=== PATIENT | female | born 1985 ===

== ENCOUNTER → 2019-10-26 | Outpatient (CLI) | payer OTHER ==
[~2019-10-26] MED LIST: MACROBID 100 M100 MG PO; OBSTETRIX DHA1 EACH
== END | disposition home or self-care (01) ==
LOC: PRENATAL 13:27
PROVIDERS: ATTEND Obstetrics & Gynecology Maternal & Fetal Medicine
DX: Z36.89 Encounter for other specified antenatal screening (principal); O36.80X1 Pregnancy with inconclusive fetal viability, fetus 1; Z3A.12 12 weeks gestation of pregnancy

== ENCOUNTER 2019-10-31 22:19 | Emergency (ER) | payer OTHER ==
[~2019-10-31] VITALS: Ht 162.6 cm; Wt 68.0 kg
[2019-10-31] MEDS ORDERED: OBSTETRIX DHA1 EACH (22:34)
[2019-11-01] MEDS ORDERED: MACROBID 100 M100 MG PO (01:53)
== END 2019-11-01 02:15 | disposition home or self-care (01) ==
LOC: ER 22:19
DX: O23.41 Unspecified infection of urinary tract in pregnancy, first trimester (principal); R10.2 Pelvic and perineal pain

== ENCOUNTER → 2019-12-21 | Outpatient (CLI) | payer OTHER | END | disposition home or self-care (01) | LOC: PRENATAL 13:00 | PROVIDERS: ATTEND Obstetrics & Gynecology Maternal & Fetal Medicine | DX: O35.0XX1 Maternal care for (suspected) central nervous system malformation in fetus, fetus 1 (principal); O35.3XX1 Maternal care for (suspected) damage to fetus from viral disease in mother, fetus 1; O98.512 Other viral diseases complicating pregnancy, second trimester; Z36.89 Encounter for other specified antenatal screening; Z3A.20 20 weeks gestation of pregnancy ==

== ENCOUNTER → 2020-02-15 | Outpatient (CLI) | payer OTHER | END | disposition home or self-care (01) | LOC: PRENATAL 13:00 | PROVIDERS: ATTEND Obstetrics & Gynecology Maternal & Fetal Medicine | DX: O26.843 Uterine size-date discrepancy, third trimester (principal); O35.0XX1 Maternal care for (suspected) central nervous system malformation in fetus, fetus 1; Z36.89 Encounter for other specified antenatal screening; Z3A.29 29 weeks gestation of pregnancy ==

== ENCOUNTER → 2020-04-11 | Outpatient (CLI) | payer OTHER ==
[~2020-04-11] MED LIST changes: +ORTHO DF 3,7751 EACH PO; +PRENATAL + DHA1 EAC1 PO; +SYNTHROID75 MCG PO
== END | disposition home or self-care (01) ==
LOC: PRENATAL 13:00
PROVIDERS: ATTEND Obstetrics & Gynecology Maternal & Fetal Medicine
DX: O26.843 Uterine size-date discrepancy, third trimester (principal); O35.0XX1 Maternal care for (suspected) central nervous system malformation in fetus, fetus 1; O36.8131 Decreased fetal movements, third trimester, fetus 1; Z36.89 Encounter for other specified antenatal screening; Z3A.37 37 weeks gestation of pregnancy

== ENCOUNTER 2020-05-02 17:45 | Inpatient (IN) | payer OTHER ==
[~2020-05-02] VITALS: Ht 162.6 cm; Wt 76.2 kg
[~2020-05-02 17:45] MED LIST changes: -ORTHO DF 3,7751 EACH PO; -PRENATAL + DHA1 EAC1 PO; -SYNTHROID75 MCG PO
[2020-05-02] MEDS ORDERED: SYNTHROID75 MCG PO (19:06)
[2020-05-02] MEDS ORDERED: PRENATAL + DHA1 EAC1 PO (19:07)
[2020-05-02] MEDS ORDERED: ORTHO DF 3,7751 EACH PO (19:08)
== END 2020-05-05 10:58 | disposition home or self-care (01) | DRG 807 ==
LOC: LDR 17:45 → SURG-SUITE 17:45 → SURH 05-03 14:11 → SURG-SUITE 05-05 10:58
PROVIDERS: ADMIT Obstetrics & Gynecology; ATTEND Obstetrics & Gynecology
PROC: 10E0XZZ Delivery of Products of Conception, External Approach (ICD-10-PCS; principal; 2020-05-02)
PROC: 0HQ9XZZ Repair Perineum Skin, External Approach (ICD-10-PCS; 2020-05-02)
PROC: 4A1HXFZ Monitoring of Products of Conception, Cardiac Rhythm, External Approach (ICD-10-PCS; 2020-05-02)
DX: O70.0 First degree perineal laceration during delivery (principal); Z37.0 Single live birth; Z3A.39 39 weeks gestation of pregnancy; Z20.822 Contact with and (suspected) exposure to COVID-19

== ENCOUNTER 2023-12-04 05:28 | Day surgery (SDC) | payer OTHER ==
[2023-11-27 10:48] VITALS: BP 108/73
[~2023-12-04] VITALS: Ht 162.6 cm; Wt 72.6 kg
[~2023-12-04 05:28] MED LIST changes: +ORTHO DF 3,7751 EACH PO; +PEPCID40 MG PO; +PRENATAL + DHA1 EAC1 PO; +PROTONIX40 MG PO; +SYNTHROID75 MCG PO
[2023-12-04] MEDS ORDERED: BUPIVACAINE HCL 30 ML VIAL IJ ONE (08:15)
[2023-12-04] MEDS ORDERED: DIBUCAINE 15 GM OINT..GM. TUBE RECTAL ONE (08:15)
[2023-12-04] MEDS ORDERED: CEFTRIAXONE SODIUM 2,000 MG VIAL IV ONE (08:15)
[2023-12-04] MEDS ORDERED: HEMOSTATIC MATRIX 1 KIT KIT TOP ONE (08:15)
[2023-12-04] MEDS ORDERED: BUPIVACAINE LIPOSOME/PF 266 MG/20 ML VIAL IJ ONE (08:15)
[2023-12-04] MEDS ORDERED: METRONIDAZOLE/SODIUM CHLORIDE 500 MG/100 ML PIGGYBACK IV ONE (08:15)
[2023-12-04] MEDS ORDERED: POVIDONE-IODINE 118 ML BOTT TOP ONE (08:15)
[2023-12-04] MEDS ORDERED: PERCOCET 5-3251 EACH PO (09:07)
[2023-12-04] MEDS ORDERED: CELECOXIB200 MG PO (09:07)
[2023-12-04] MEDS ORDERED: NEURONTIN300 MG PO (09:07)
[2023-12-04] MEDS ORDERED: MORPHINE SULFATE 4 MG/ML VIAL IV ONE ×2 (09:35→10:15)
== END 2023-12-04 11:20 | disposition home or self-care (01) ==
LOC: CIR.AMB 05:28
PROVIDERS: ATTEND Surgery
DX: K64.3 Fourth degree hemorrhoids (principal); K64.2 Third degree hemorrhoids; K62.5 Hemorrhage of anus and rectum; N81.6 Rectocele